=== PATIENT | female | born 1970 | race Asian ===

== ENCOUNTER → 2016-08-11 | Outpatient (CLI) | payer OTHER ==
[~2016-08-11] MED LIST: CLARITIN10 MG PO; MULTIVITAMINS PO; PEPCID20 MG PO; PEPCID40 MG PO; PREDNISONE 10 M10 MG PO; TRIAMCINOLONE A80 G2 TOP; VITAMINC500 PO
== END ==
LOC: RAD 08:51
DX: Z12.31 Encounter for screening mammogram for malignant neoplasm of breast (principal)

== ENCOUNTER → 2017-09-13 | Outpatient (CLI) | payer OTHER | LOC: RAD 10:33 | DX: Z12.31 Encounter for screening mammogram for malignant neoplasm of breast (principal) ==

== ENCOUNTER → 2018-11-13 | Outpatient (CLI) | payer OTHER | LOC: ULTRA 08:43 | DX: R10.32 Left lower quadrant pain (principal); R10.2 Pelvic and perineal pain ==

== ENCOUNTER → 2019-05-22 | Outpatient (CLI) | payer OTHER | LOC: RAD 08:54 | DX: Z12.31 Encounter for screening mammogram for malignant neoplasm of breast (principal) ==

== ENCOUNTER → 2019-11-05 | Outpatient (CLI) | payer OTHER | LOC: LAB 13:51 | PROVIDERS: ATTEND Family Medicine | DX: Z20.828 Contact with and (suspected) exposure to other viral communicable diseases (principal); R05 Cough; R50.9 Fever, unspecified ==

== ENCOUNTER → 2020-05-26 | Outpatient (CLI) | payer OTHER | LOC: BC 08:22 | PROVIDERS: ATTEND Family Medicine | DX: Z12.31 Encounter for screening mammogram for malignant neoplasm of breast (principal) ==